=== PATIENT | male | born 1970 | race Caucasian/White ===

== ENCOUNTER → 2016-12-15 | Outpatient (CLI) | payer OTHER ==
[~2016-12-15] MED LIST: ASPI81TA28 PO; CYAN1SUB12 PO; DIPH25CA37 PO; FOLI400T41 PO; MTR500 PO; THYR300T PO
[2016-12-15 10:47] LABS: ALT/SGPT 30 U/L (12-78); BLOOD UREA NITROGEN 22 mg/dl (7-18); BUN/CREATININE RATIO 18.1 (10-20); CALCIUM 9.5 mg/dl (8.5-10.1); CARBON DIOXIDE 25 mmol/L (21-32); CHLORIDE 111 mmol/L (98-107); GLUCOSE 95 mg/dl (70-99); POTASSIUM 4.3 mmol/L (3.5-5.1); SODIUM 144 mmol/L (136-145)
[2016-12-15 10:58] LABS: ALB/GLOB RATIO 0.9 (0.9-2); ALKALINE PHOSPHATASE 68 U/L (45-117); AST/SGOT 14 U/L (15-37)
[2016-12-15 11:08] LABS: ESTIMATED AVERAGE GLUCOSE 120 mg/dl; HA1C FLAG Normal (Normal)
== END | disposition home or self-care (01) ==
LOC: C.LAB1850 09:09
PROVIDERS: ATTEND Internal Medicine
DX: Z13.1 Encounter for screening for diabetes mellitus (principal); E03.9 Hypothyroidism, unspecified; R53.83 Other fatigue

== ENCOUNTER → 2016-12-27 | Outpatient (CLI) | payer OTHER ==
[2016-12-27 13:18] LABS: INR 0.9 (0.9-1.1)
== END | disposition home or self-care (01) ==
LOC: C.LAB1850 11:48
PROVIDERS: ATTEND Internal Medicine
DX: Z00.00 Encounter for general adult medical examination without abnormal findings (principal); I82.90 Acute embolism and thrombosis of unspecified vein

== ENCOUNTER → 2018-02-21 | Outpatient (CLI) | payer OTHER ==
[2018-02-21 10:04] LABS: BASO % 0.2 %; BASO ABS # 0.02 K/uL (0-0.2); EOS % 0.3 %; EOS ABS # 0.03 K/uL (0-0.5); HEMATOCRIT 41.9 % (42-52); IG# 0.05 K/uL (0.00-0.02); LYMPH % 24.1 %; LYMPH ABS # 2.35 K/uL (1.2-3.4); MEAN CELL VOLUME 83.6 fL (80-100); MEAN CORPUSCULAR HEMOGLOBIN 27.9 pg (25-34); MEAN CORPUSCULAR HGB CONC 33.4 g/dl (32-36); MEAN PLATELET VOLUME 10.5 fL (7.4-10.4); MONO % 8.8 %; MONO ABS # 0.86 K/uL (0.11-0.59); NEUT % 66.1 %; NEUT ABS # 6.43 K/uL (1.4-6.5); PLATELET COUNT 228 K/uL (130-400); RED CELL DISTRIBUTION WIDTH CV 15.2 % (11.5-14.5); RED CELL DISTRIBUTION WIDTH SD 46.2 fL (36.4-46.3); WHITE BLOOD COUNT 9.74 K/uL (4.8-10.8)
== END | disposition home or self-care (01) ==
LOC: C.LAB1850 09:10
PROVIDERS: ATTEND Internal Medicine Pulmonary Disease
DX: R53.83 Other fatigue (principal); R07.89 Other chest pain; J44.9 Chronic obstructive pulmonary disease, unspecified